=== PATIENT | female | born 1945 | race Hispanic/Latino ===

== ENCOUNTER 2019-02-06 12:58 | Outpatient (CLI) | payer MEDICARE ==
--- NOTE | 2019-02-06 14:52 | Mammography Report ---
BILATERAL DIGITAL DIAGNOSTIC MAMMOGRAM with CAD and DIGITAL BREAST TOMOSYNTHESIS (DBT) and BILATERAL BREAST ULTRASOUND: 02/06/19 12:58:00 CLINICAL: Bilateral palpable lumps. COMPARISON:March 2018 [place] and 08/18/15 [facility] mammograms FINDINGS: The breasts are heterogeneously dense, which may obscure small masses.The fibroglandular pattern is unchanged since 2014. No mass, architectural distortion or suspicious calcifications. Scattered bilateral benign calcifications. Ultrasound of the right breast is performed at 9 o'clock approximately 5 cm from the nipple where she describes a lump. A calcified oil cyst correlates with palpable lump and measures 4 mm. No other significant finding of the right breast. Ultrasound of the left breast is performed at 4 o'clock near the nipple where she feels a lump. No mass, cyst or shadowing to correlate with a lump. Mild retroareolar duct ectasia. No intraductal mass. IMPRESSION: No suspicious finding. A palpable benign oil cyst of the right breast at 9 o'clock and benign duct ectasia of the left breast. BI-RADS CATEGORY: 2 - - Benign RECOMMENDATION: Clinical followup and routine mammographic screening in one year. COMMENT: Patient follow-up letters are generated by our [employer] application.
== END 2019-02-06 12:59 | disposition home or self-care (01) ==
LOC: SPVWC 12:58
DX: N60.42 Mammary duct ectasia of left breast (principal); N60.01 Solitary cyst of right breast
CPT/HCPCS: 76642; 77066; G0279